=== PATIENT | male | born 1985 | race Hispanic/Latino ===

== ENCOUNTER 2021-08-18 13:56 | Emergency (ER) | payer OTHER, SELFPAY ==
--- NOTE | ~2021-08-18 | XR_ITS ---
XR foot LT min 3V DATE: 08/18/2021 14:52 INDICATION: Plantar foot pain for 2 days. No known injury. TECHNIQUE: 4 portable views COMPARISON: None FINDINGS: There is mild osteoarthritis at the first metatarsophalangeal joint. No fracture, dislocation, periosteal reaction or bone destruction is detected. No plantar or posterio r calcaneal enthesopathy. IMPRESSION: Mild osteoarthritis at first metatarsophalangeal joint Reviewed, dictated and finalized at location B.
[2021-08-18 14:27] VITALS: BP 133/79; PULSE 88; RESP 14; TEMP 36.2; O2SAT 99
--- NOTE | 2021-08-18 15:34 | ED.EXTPRO ---
HPI - Extremity Problem General Chief complaint: Extremity Problem,Nontraumatic Stated complaint: L FOOT PAIN Time Seen by Provider: 08/18/21 14:44 Source: patient Mode of arrival: ambulatory Limitations: no limitations History of Present Illness HPI Narrative: This is a 35-year-old male that presents to the emergency department for left great toe pain present over the last 2 days. No recent injury or trauma. Reports it has been so painful that is hard for him to walk on the foot. Reports yesterday he noted some swelling and warmth to the area. Denies fever or redness. Related Data Allergies Allergy/AdvReac Type Severity Reaction Status Date / Time No Known Allergies Allergy Verified 08/18/21 14:36 Review of Systems Review of Systems: CONSTITUTIONAL: Denies fever SKIN: Denies rash MUSCULOSKELETAL: Reports joint pain, and myalgia. NEUROLOGIC: Denies numbness All systems reviewed & are unremarkable except as noted in HPI and below PMFSH Past Medical History Medical History (Updated 08/18/21 @ 17:04 by Tessa Richardson PA-C) No active medical problems Social History Social History (Updated 08/18/21 @ 15:38 by Tessa Richardson PA-C) Smoking status: Never smoker Exam Narrative: GENERAL: Well-appearing, well-nourished, and in no acute distress. HEAD: Normocephalic, atraumatic. EYES: EOMI. EXTREMITIES: Normal range of motion. Mild edema about the left first MTP joint. No overlying erythema. Normal DP pulses SKIN: Warm, dry, no rash. NEURO: No focal deficits. Alert and oriented x3. PSYCH: Normal mood and affect Course Vital Signs Vital signs: Vital Signs Temperature 97.2 F L 08/18/21 14:27 Pulse Rate 88 08/18/21 14:27 Respiratory Rate 14 08/18/21 14:27 Blood Pressure 133/79 08/18/21 14:27 Pulse Oximetry 99 08/18/21 14:27 Temperature 97.2 F L 08/18/21 14:27 Pulse Rate 88 08/18/21 14:27 Respiratory Rate 14 08/18/21 14:27 Blood Pressure 133/79 08/18/21 14:27 Pulse Oximetry 99 08/18/21 14:27 MDM - Extremity (Nontraumatic) MDM Narrative Medical decision making narrative: Patient presents the emergency department for left great toe pain over the last couple of days. Mild swelling and warmth of the area. He is tender palpation at the MTP joint. He is afebrile and nontoxic-appearing. CBC is without leukocytosis. CRP is not elevated. Uric acid is high normal. Left foot x-ray shows mild osteoarthritis at the first MTP joint. Patient was updated on case findings. Will be treated with anti-inflammatories and a steroid for probable gout flare. He is to follow-up with primary care doctor. He was given warnings to return to the ER Lab Data Attestation: I reviewed the patient's lab results. Result diagrams: 08/18/21 16:32 08/18/21 16:32 Labs: Lab Results 08/18/21 08/18/21 08/18/21 Range/Units 16:32 16:32 16:32 WBC 7.0 (4.5-10.0) K/mm3 RBC 4.58 L (4.6-6.20) M/mm3 Hgb 13.8 L (14.0-18.0) g/dL Hct 40.3 L (42.0-52.0) % MCV 88.0 (80-100) fl MCH 30.1 (26-34) pg MCHC 34.2 (32-36) g/dl RDW 12.4 (11.5-14.5) % Plt Count 280 (150-375) k/mm3 MPV 8.8 (7.4-10.4) fl Immature Gran % (Auto) 0.4 (0-0.5) % Neut % (Auto) 53.2 (45.5-73.1) % Lymph % (Auto) 34.8 (18.3-44.2) % [place]acken % (Auto) 7.3 (2.6-8.5) % Eos % (Auto) 3.9 (0-4.4) % Baso % (Auto) 0.4 (0.2-1.2) % Lymph # (Auto) 2.43 (0.9-3.2) K/mm3 Bracken # (Auto) 0.5 (0.1-0.6) K/mm3 Eos # (Auto) 0.3 (0-0.3) K/mm3 Baso # (Auto) 0.0 (0.0-0.1) K/mm3 Abs Immat Gran (auto) 0.03 (0.00-0.031) K/mm3 Absolute Neuts (auto) 3.7 (1.3-6.7) K/mm3 Absolute Nucleated RBC 0.0 (0.0-0.012) K/mm3 Nucleated RBC % 0.0 (0.0-0.2) % ESR Pending Cancelled Sodium 142 (137-145) mmol/L Potassium 4.1 (3.4-5.0) mmol/L Chloride 102 (98-107) mmol/L Carbon Dioxide 29 (22-30) mmol/L Anion Gap 11
[2021-08-18 16:41] LABS: Basophils Percent Auto 0.4 % (0.2-1.2); Eosinophils Absolute Auto 0.3 K/mm3 (0-0.3); Eosinophils Percent Auto 3.9 % (0-4.4); Hematocrit 40.3 % (42.0-52.0); Hemoglobin 13.8 g/dL (14.0-18.0); Immature Granulocyte Absolute 0.03 K/mm3 (0.00-0.031); Immature Granulocyte Percent A 0.4 % (0-0.5); Lymphocytes Absolute Auto 2.43 K/mm3 (0.9-3.2); Lymphocytes Percent Auto 34.8 % (18.3-44.2); Mean Corpuscular HGB Conc 34.2 g/dl (32-36); Mean Corpuscular Hemoglobin 30.1 pg (26-34); Mean Platelet Volume 8.8 fl (7.4-10.4); Monocytes Absolute Auto 0.5 K/mm3 (0.1-0.6); Monocytes Percent Auto 7.3 % (2.6-8.5); Neutrophils Absolute Auto 3.7 K/mm3 (1.3-6.7); Neutrophils Percent Auto 53.2 % (45.5-73.1); Platelet Count Result 280 k/mm3 (150-375); Red Blood Count 4.58 M/mm3 (4.6-6.20); Red Cell Distribution Width 12.4 % (11.5-14.5)
[2021-08-18 16:51] LABS: CRP 0.9 mg/dL (<1.0); Uric Acid 8.4 mg/dL (3.5-8.5)
[2021-08-18 17:26] LABS: Anion Gap 11 mmol/L (8-16); Blood Urea Nitrogen 12 mg/dL (9-20); Calcium 9.5 mg/dL (8.4-10.2); Carbon Dioxide 29 mmol/L (22-30); Chloride 102 mmol/L (98-107); Estimated CRCL calculation 140 ml/min; Estimated Glomerular Filt Rate > 60; Glucose 106 mg/dL (65-110); Potassium 4.1 mmol/L (3.4-5.0); Sodium 142 mmol/L (137-145)
[2021-08-18 17:50] VITALS: BP 130/76; PULSE 82; RESP 16; O2SAT 99
[2021-08-18 17:52] LABS: Erythrocyte Sedimentation Rate 24 mm/hr (0-20)
== END 2021-08-18 17:50 | disposition home or self-care (01) ==
PROVIDERS: Physician Assistant; Emergency Provider Emergency Medicine
DX: M10.9 Gout, unspecified (principal); M19.072 Primary osteoarthritis, left ankle and foot
CPT/HCPCS: 36415; 73630; 80048; 84550; 85025; 85652; 86140; 99283

== ENCOUNTER 2021-08-29 12:49 | Outpatient (CLI) | payer OTHER, SELFPAY ==
--- NOTE | ~2021-08-29 | XR_ITS ---
XR chest 2V DATE: 08/29/2021 13:17 INDICATION: Tobacco use TECHNIQUE: 2 views COMPARISON: None FINDINGS: Normal heart size. No hilar or mediastinal enlargement. No pulmonary infiltrate or consol idation, pulmonary vascular congestion or pleural effusion or pneumothorax. IMPRESSION: No active cardiopulmonary disease Reviewed, dictated and finalized at location B.
== END 2021-08-29 12:50 | disposition home or self-care (01) ==
LOC: ANHIMG 12:55
PROVIDERS: PCP Emergency Medicine; Visit Provider Emergency Medicine
DX: Z72.0 Tobacco use (principal)
CPT/HCPCS: 71046

== ENCOUNTER 2021-10-10 15:06 | Emergency (ER) | payer OTHER, SELFPAY ==
--- NOTE | ~2021-10-10 | CT_ITS ---
EXAMINATION: CT chest abdomen w con DATE: 10/10/2021 18:42 BI MANAGER INDICATION: Sternal and epigastric pain TECHNIQUE: Computed tomography (CT) of the chest and abdomen was performed with 100 cc Omnipaque 350 intravenous contrast. The dose-length product was 1449.50 mGy-cm. Automated exposure control and iter ative reconstruction technique were employed. COMPARISON: None FINDINGS: CHEST CT: No thoracic lymphadenopathy. Small hiatal hernia. No significant pleural or pericardial effusion. No evidence for aortic aneurysm or dissection. There is a 6 mm fissural nodule on the right, likely blake gn. No focal airspace consolidation. No pneumothorax. No endobronchial lesions. ABDOMEN CT: Fatty infiltration of the liver. Gallbladder is contracted. The spleen, pancreas, adrenal glands and kidneys are unremarkable. Nonobstructive bowel gas pattern. There are small ileocolic lymph nodes in the mesenteric, likely reactive. Colonic diverticula without evidence for diverticulitis. IMPRESSION: 1. No acute abnormality of the chest or abdomen. Reviewed, dictated and finalized at location A. MANAGER
--- NOTE | ~2021-10-10 | XR_ITS ---
EXAMINATION: XR chest 2V DATE: 10/10/2021 15:37 INDICATION: Chest pain. TECHNIQUE: Frontal and lateral views of the chest were obtained. COMPARISON: Chest 2 views 08/29/2021 FINDINGS: The chest demonstrates clear lungs without pneumonia, pleural effusion, or pneumothorax. Th e heart size is normal. IMPRESSION: 1. No acute cardiopulmonary disease. Reviewed, dictated and finalized at location B. UP ASSEMBLER
--- NOTE | 2021-10-10 15:10 | ECG_ITS ---
Measurements Intervals [place] Rate: 97 P: 52 CO: 126 QRS: -6 QRSD: 117 T: 52 QT: 333 QTc: 424 Interpretive Statements SINUS RHYTHM INTRAVENTRICULAR CONDUCTION DELAY ST ELEVATION IN DIFFUSE LEADS CONSISTENT WITH INJURY, PERICARDITIS, OR EARLY REPOLARIZATION BASELINE ARTIFACT- I, II, III ABNORMAL ECG Electronically Signed On 10-10-2021 16:30:47 BIN WORKER by Rory Rogers D.O.
[2021-10-10 15:16] VITALS: BP 133/74; PULSE 99; RESP 16; TEMP 36.4; O2SAT 99
[2021-10-10 15:26] LABS: Basophils Percent Auto 0.4 % (0.2-1.2); Eosinophils Absolute Auto 0.3 K/mm3 (0-0.3); Eosinophils Percent Auto 3.2 % (0-4.4); Hematocrit 37.5 % (42.0-52.0); Hemoglobin 13.4 g/dL (14.0-18.0); Immature Granulocyte Absolute 0.02 K/mm3 (0.00-0.031); Immature Granulocyte Percent A 0.3 % (0-0.5); Mean Corpuscular HGB Conc 35.7 g/dl (32-36); Mean Corpuscular Hemoglobin 30.9 pg (26-34); Mean Corpuscular Volume 86.4 fl (80-100); Mean Platelet Volume 9.2 fl (7.4-10.4); Monocytes Absolute Auto 0.5 K/mm3 (0.1-0.6); Monocytes Percent Auto 6.9 % (2.6-8.5); Neutrophils Absolute Auto 4.9 K/mm3 (1.3-6.7); Neutrophils Percent Auto 63.2 % (45.5-73.1); Platelet Count Result 227 k/mm3 (150-375); Red Blood Count 4.34 M/mm3 (4.6-6.20); Red Cell Distribution Width 12.4 % (11.5-14.5); White Blood Count 7.7 K/mm3 (4.5-10.0)
[2021-10-10 15:37] LABS: INR 1.1
[2021-10-10 15:38] LABS: Partial Thromboplastin Time 34.9 SECONDS (22.3-36.8)
[2021-10-10 15:39] LABS: Alanine Aminotransferase 40 U/L (4-50); Albumin Level 4.7 g/dL (3.5-5.1); Alkaline Phosphatase 53 U/L (38-126); Anion Gap 10 mmol/L (8-16); Aspartate Amino Transferase 35 U/L (17-59); Bilirubin,Total 0.8 mg/dL (0.2-1.3); Blood Urea Nitrogen 9 mg/dL (9-20); Calcium 9.1 mg/dL (8.4-10.2); Carbon Dioxide 26 mmol/L (22-30); Chloride 101 mmol/L (98-107); Estimated CRCL calculation 124 ml/min; Estimated Glomerular Filt Rate > 60; Glucose 130 mg/dL (65-110); Lipase 47 U/L (23-300); Potassium 3.6 mmol/L (3.4-5.0); Sodium 137 mmol/L (137-145)
[2021-10-10 15:51] LABS: Troponin I < 0.012 ng/mL (0.000-0.034)
[2021-10-10 17:05] VITALS: BP 120/68; PULSE 106; RESP 17; O2SAT 98
[2021-10-10 17:07] VITALS: PULSE 89
[2021-10-10 18:23] VITALS: BP 113/67; PULSE 85; RESP 17; O2SAT 98
[2021-10-10 18:47] LABS: CRP 1.8 mg/dL (<1.0)
[2021-10-10 18:57] LABS: Troponin I < 0.012 ng/mL (0.000-0.034)
--- NOTE | 2021-10-10 19:10 | PC.NURSE ---
Pt refusing pain medication at this time.
[2021-10-10 19:24] LABS: Erythrocyte Sedimentation Rate 43 mm/hr (0-20)
[2021-10-10 20:13] VITALS: BP 137/76; PULSE 79; RESP 18; O2SAT 100
--- NOTE | 2021-10-10 20:17 | PC.NURSE ---
No dose toradol required per ER PA.
--- NOTE | 2021-10-10 20:45 | ED.CHESTPAIN ---
HPI - Chest Pain General Chief Complaint: Chest Pain Stated Complaint: pain in chest and back Time Seen by Provider: 10/10/21 17:29 Source: patient Mode of arrival: ambulatory Limitations: no limitations History of Present Illness HPI narrative: Patient is a 35-year-old male with chief complaint of epigastric and midsternal discomfort over the past 3 days. Patient reports he feels the pain come up and possibly count a move of the left side should be evaluated. He reports is like a achy sensation that started after eating 3 days ago. Patient states that he wondered if it was reflux but he wanted to come in to be evaluated. Patient denies fever, chills, shortness of breath, palpitations, sharp stabbing chest pain, syncope, dizziness, nausea or vomiting. He has not taken anything to alleviate his symptoms. Patient denies having any other viral-like symptoms. Patient denies a history of any cardiac issues. Related Data Allergies Allergy/AdvReac Type Severity Reaction Status Date / Time No Known Allergies Allergy Verified 10/10/21 17:02 Review of Systems Review of Systems: CONSTITUTIONAL: Denies fever, chills, or sweats. EYES: Denies visual changes, redness, or discharge. ENT: Denies rhinorrhea, congestion, sore throat, or otalgia. CARDIOVASCULAR: Reports midsternal discomfort denies chest pain, palpitations, or edema. RESPIRATORY: Denies cough or dyspnea. GASTROINTESTINAL: Reports epigastric discomfort to the ED denies abdominal pain, nausea, vomiting, or diarrhea. GENITOURINARY: Denies dysuria or hematuria. SKIN: Denies rash or itching. MUSCULOSKELETAL: Denies back pain, joint pain, or myalgia. NEUROLOGIC: Denies headache, numbness, dizziness, or weakness. PSYCHIATRIC: Denies anxiety or depression. PMFSH Past Medical History Medical History (Updated 10/10/21 @ 20:57 by Monico Mittal PA-C) No active medical problems Social History Social History (Updated 08/18/21 @ 15:38 by Tessa Richardson PA-C) Smoking status: Never smoker Exam Narrative: GENERAL: Well-appearing, well-nourished, and in no acute distress. Speaking in clear sentences without signs of discomfort. HEAD: Normocephalic, atraumatic. EYES: PERRLA and EOMI. NECK: Supple. No adenopathy or masses. Range of motion intact. CHEST: Clear to auscultation. No respiratory distress. No wheezes rales or rhonchi HEART: Regular rate and rhythm. No murmur heard. Normal peripheral pulses. No friction rub auscultated. ABDOMEN: Soft, mild tenderness to palpation epigastrically, nondistended, normal active bowel sounds. EXTREMITIES: Normal range of motion. No edema. SKIN: Warm, dry, no rash. NEURO: No focal deficits. Alert and oriented x3. PSYCH: Normal mood and affect. Course Vital Signs Vital signs: Vital Signs Temperature 97.6 F 10/10/21 15:16 Pulse Rate 99 10/10/21 15:16 Respiratory Rate 16 10/10/21 15:16 Blood Pressure 133/74 10/10/21 15:16 Pulse Oximetry 99 10/10/21 15:16 Temperature 97.6 F 10/10/21 15:16 Pulse Rate 79 10/10/21 20:13 Respiratory Rate 18 10/10/21 20:13 Blood Pressure 137/76 10/10/21 20:13 Pulse Oximetry 100 10/10/21 20:13 MDM - Chest Pain MDM Narrative Medical decision making narrative: Patient white blood cell count is normal. Patient troponin is normal. Patient CRP is elevated at 1.8 his ESR is 43. Lipase is normal which does not suggest pancreatitis. Patient doesn't notice change in position with his symptoms. Patient CT chest abdomen shows hiatal hernia without other acute abnormalities. Patient's chest x-ray does not show pericardial effusion or enlargement. nor CT. patient declines pain medication. Patient is agreeable to GI cocktail. Discussed with patient the findings of his work-up and the need for follow-up with his primary care for further investigation and management. Patient has been instructed to return to emergency department if he has any chest pain, nausea, vomiting, shortness
[2021-10-10] MEDS: BELLADONNA ALK/PHENOB ELIX 10 ML, MAG HYDROX/ALUMINUM HYD/SIMETH 30 ML, LIDOCAINE HCL 2... PO (21:10)
--- NOTE | 2021-10-10 21:13 | PC.NURSE ---
Issue scanning medication (Protonix) with computer. Med vial verified with order with CIRILO Salcedo.
[2021-10-10] MEDS: PANTOPRAZOLE SODIUM IV 40 MG VIAL IV PUSH (21:15)
[2021-10-10 21:24] VITALS: BP 122/76; PULSE 80; RESP 18; O2SAT 98
== END 2021-10-10 21:25 | disposition home or self-care (01) ==
PROVIDERS: Physician Assistant; Emergency Provider Emergency Medicine; PCP Emergency Medicine
DX: R10.13 Epigastric pain (principal)
CPT/HCPCS: 36415; 71046; 71260; 74160; 80053; 83690; 84484; 85025; 85610; 85652; 85730; 86140; 93005; 96374; 99284; A9270; C9113; Q9967